=== PATIENT | female | born 1995 | race Caucasian/White ===

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

== ENCOUNTER 2021-02-22 15:09 | Emergency (ER) | payer BC ==
[~2021-02-22 15:09] MED LIST: BENTYL 20MG TAB20 MG PO; COLACE 100MG C100 MG PO; IBUPROFEN600 MG PO; KEFLEX CAP 500500 MG PO; NORCO 5-325 TA1 EACH PO; PYRIDIUM100 MG PO; ZOFRAN ODT 4 MG4 MG PO
[2021-02-22 16:03] LABS: HEMOGLOBIN 13.8 gm/dl (12.3-15.3); RED BLOOD COUNT 4.54 M/UL (4.00-5.10); WHITE BLOOD COUNT 6.9 K/UL (4.5-11.0)
[2021-02-22 16:20] LABS: BUN/CREATININE RATIO 8 (0-10)
[2021-02-22] MEDS ORDERED: DICLEGIS DR 101 EACH PO (18:28)
== END 2021-02-22 18:42 | disposition home or self-care (01) ==
LOC: ER1 15:09
PROVIDERS: Physician Assistant
DX: O21.0 Mild hyperemesis gravidarum (principal); Z90.49 Acquired absence of other specified parts of digestive tract; Z88.8 Allergy status to other drugs, medicaments and biological substances; Z3A.09 9 weeks gestation of pregnancy
CPT/HCPCS: 80053; 81001; 84702; 85025; 96374; 99284; J2550

== ENCOUNTER 2021-09-13 14:13 | Inpatient (IN) | payer BC, OTHER ==
[~2021-09-13] VITALS: Ht 157.5 cm; Wt 85.3 kg
[~2021-09-13 14:13] MED LIST changes: +DICLEGIS DR 101 EACH PO
[2021-09-13 15:13] LABS: HEMOGLOBIN 10.4 gm/dl (12.3-15.3); RED BLOOD COUNT 3.88 M/UL (4.00-5.10); WHITE BLOOD COUNT 13.6 K/UL (4.5-11.0)
[2021-09-13 15:38] LABS: BUN/CREATININE RATIO 8 (0-10)
[2021-09-13] MEDS ORDERED: IRON325 M1 PO (15:40)
[2021-09-13] MEDS ORDERED: PRILOSEC OTC20 MG PO (15:41)
[2021-09-13] MEDS ORDERED: LEVOTHYROXINE50 MC1 PO (15:51)
[2021-09-14] MEDS ORDERED: COLACE 100MG C100 MG PO (13:43)
[2021-09-14] MEDS ORDERED: IBUPROFEN600 MG PO (13:43)
[2021-09-14] MEDS ORDERED: HYDROCODON-ACE1 EAC6 PO (13:43)
[2021-09-14] MEDS ORDERED: TRANDATE 100 M100 MG PO (13:54)
[2021-09-14 19:44] LABS: WHITE BLOOD COUNT 16.3 K/UL (4.5-11.0)
[2021-09-14 19:48] LABS: HEMOGLOBIN 7.9 gm/dl (12.3-15.3); RED BLOOD COUNT 2.92 M/UL (4.00-5.10)
[2021-09-14 19:54] LABS: BUN/CREATININE RATIO 11 (0-10)
[2021-09-15 05:35] LABS: HEMOGLOBIN 7.8 gm/dl (12.3-15.3)
[2021-09-17] MEDS ORDERED: FERROCITE324 MG PO (13:13)
[2021-09-17] MEDS ORDERED: TRANDATE 300 M300 MG PO (13:13)
== END 2021-09-17 15:57 | disposition home or self-care (01) | DRG 787 ==
LOC: GENOP 14:13 → OB 16:21
PROVIDERS: Obstetrics & Gynecology; ADMIT Obstetrics & Gynecology
PROC: 3E0234Z Introduction of Serum, Toxoid and Vaccine into Muscle, Percutaneous Approach (ICD-10-PCS; 2021-09-13)
PROC: 10D00Z1 Extraction of Products of Conception, Low, Open Approach (ICD-10-PCS; 2021-09-14)
PROC: 0UT90ZL Resection of Uterus, Supracervical, Open Approach (ICD-10-PCS; 2021-09-14)
PROC: 0UC90ZZ Extirpation of Matter from Uterus, Open Approach (ICD-10-PCS; 2021-09-14)
PROC: 4A1HXCZ Monitoring of Products of Conception, Cardiac Rate, External Approach (ICD-10-PCS; 2021-09-14)
PROC: 30233N1 Transfusion of Nonautologous Red Blood Cells into Peripheral Vein, Percutaneous Approach (ICD-10-PCS; principal; 2021-09-14 14:07)
DX: O14.14 Severe pre-eclampsia complicating childbirth (principal); D62 Acute posthemorrhagic anemia; O13.4 Gestational [pregnancy-induced] hypertension without significant proteinuria, complicating childbirth; Z3A.38 38 weeks gestation of pregnancy; Z37.0 Single live birth; O61.9 Failed induction of labor, unspecified; O36.63X0 Maternal care for excessive fetal growth, third trimester, not applicable or unspecified; O72.1 Other immediate postpartum hemorrhage; O90.81 Anemia of the puerperium; Z20.822 Contact with and (suspected) exposure to COVID-19; Z23 Encounter for immunization
CPT/HCPCS: 36415; 80053; 82570; 82800; 83615; 83735; 84156; 84550; 85014; 85018; 85025; 85384; 85610; 85730; 86850; 86900; 86901; 86920; 90715; C9113; J0360; J0610; J0690; J1170; J1885; J1956; J2001; J2250; J2270; J2274; J2300; J2370; J2405; J2590; J2704; J3010; J3475; J7030; J7120; P9016; U0002